=== PATIENT | female | born 1955 | race Caucasian/White ===

== ENCOUNTER 2016-11-15 15:52 | Emergency (ER) | payer OTHER ==
[~2016-11-15] VITALS: Ht 157.5 cm; Wt 78.9 kg
[2016-11-15 15:53] VITALS: BP 153/89
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
[2016-11-15] MEDS ORDERED: CYCLOBENZAPRINE5 M2 PO (17:01)
== END 2016-11-15 17:06 ==
LOC: ERH 15:52
DX: S80.212A Abrasion, left knee, initial encounter (principal); S80.812A Abrasion, left lower leg, initial encounter; R07.2 Precordial pain; V49.50XA Passenger injured in collision with unspecified motor vehicles in traffic accident, initial encounter; Y92.9 Unspecified place or not applicable